=== PATIENT | male | born 1990 | race Caucasian/White ===

== ENCOUNTER 2024-04-08 09:07 | Emergency (ER) | payer OTHER, SELFPAY ==
[2024-04-08 09:16] VITALS: BP 160/88; PULSE 73; RESP 18; TEMP 37.2; O2SAT 99; BMI 23.1
--- NOTE | 2024-04-08 09:42 | ED_ITS ---
HPI - General Adult General Date Seen: 04/08/24 <Cheng Pozo DO - Last Filed: 04/10/24 16:07> Chief complaint: Altered Mental Status <Cheng Pozo DO - Last Filed: 04/10/24 16:07> Stated complaint: schizophrenia <Cheng Pozo DO - Last Filed: 04/10/24 16:07> Time Seen by Provider: 04/08/24 09:31 <Cheng Pozo DO - Last Filed: 04/10/24 16:07> Source: patient and other ( girlfriend) <Cheng Pozo DO - Last Filed: 04/10/24 16:07> Mode of arrival: ambulatory <Cheng Pozo DO - Last Filed: 04/10/24 16:07> Limitations: no limitations <Cheng Pozo DO - Last Filed: 04/10/24 16:07> History of Present Illness HPI narrative: patient is a 33-year-old male history of schizophrenia presenting to the emergency department for concern of a schizophrenic episode. His girlfriend is with him and she is the 1 that brought him in. She states that he was doing well for a long time but over the past few weeks she has noticed he has been having worsening delusions and has been wandering around town. She is concerned that he could get himself hurt. He also started doing meth again over the past week. He was sober for it for several months. He states he stopped taking his medications 2 months ago because he want to see if he could function without them. When asked him where he is he stated [place] but knew he was in the hospital. When of her ask him questions he mostly looks to his girlfriend to help him answer. He does state he thinks he needs treatment at this time. Denies chest pain, shortness of breath, weakness, numbness, abdominal pain, diarrhea, constipation. They just moved from [place] a few weeks ago and do not have any local providers. <Cheng Pozo DO - Last Filed: 04/10/24 16:07> Related Data Home medications: Home Medications Medication Instructions Recorded Confirmed Unobtainable 04/08/24 04/08/24 <Cheng Pozo DO - Last Filed: 04/10/24 16:07> Allergies/adverse reactions: Allergies Allergy/AdvReac Type Severity Reaction Status Date / Time No Known Drug Allergies Allergy Verified 04/08/24 09:20 <Cheng Pozo DO - Last Filed: 04/10/24 16:07> Review of Systems Status of ROS: Reports: 10 or more systems reviewed and unremarkable except as noted in History and below <Cheng Pozo DO - Last Filed: 04/10/24 16:07> [facility] Social History: Social History Smoking Status: Current every day smoker Second hand tobacco smoke exposure: No How often do you have a drink containing alcohol: never How often do you have six or more drinks on one occasion: Never AUDIT-C Alcohol total score: 0 Non-prescribed substance use: denies use service: No <Cheng Pozo DO - Last Filed: 04/10/24 16:07> Exam Narrative: Exam Narrative: Const: Well-nourished, Well-developed, in mild distress Eyes: PERRL, no conjunctival injection, and symmetrical lids HENT: Atraumatic external nose and ears. Moist mucous membranes. Neck: Symmetric, trachea midline, No thyromegaly. CVS: RRR, No murmurs or gallops. Peripheral pulses 2+ and equal in all extremities RESP: Unlabored respiratory effort. Clear to auscultation bilaterally. GI: Nontender/Nondistended, No rebound or guarding. MSK:Extremities w/o deformity, Normal Active ROM Skin: Warm, Dry. No rashes or lesions. Neuro: Normal Muscle tone, No focal neurological deficits. Psych: Awake, Alert, & Oriented to self. for the most part seems oriented to place and situation with occasional lapses. Appropriate mood and affect. <Cheng Pozo DO - Last Filed: 04/10/24 16:07> Const: Vital Signs, click to edit/add: Vital Signs - 24 hr 04/08/24 09:16 04/08/24 15:18 Temperature 99.0 F Pulse Rate [Left P ulse Oximeter] 73 80 Respiratory Rate 18 16 Blood Pressure [Le ft Upper Arm] 160/88 H 116/56 L Pulse Oximetry 99 99 Oxygen Delivery Me thod Room Air <Cheng Pozo DO - Last Filed: 04/10/24 16:07> Vital Signs, click to edit/add: Vital Signs - 24 hr 04/08/24 09:16 04/08/24 15:18 Temperature 99.0 F Pulse Rate [Left P ulse Oximeter] 73 80 Respiratory Rate 18 16 Blood Pressure [Le ft Upper Arm] 160/88 H 116/56 L Pulse Oximetry 99 99 Oxygen Delivery Me thod Room Air <Pardeep Saldana MD - Last Filed: 04/08/24 19:05> Course Vital Signs Vital signs: Initial Vital Signs Temperature 99.0 F 04/08/24 09:16 Temperature Source Temporal Artery Scan 04/08/24 09:16 Pulse Rate 73 04/08/24 09:16 Pulse Rhythm Regular 04/08/24 09:16 Pulse Strength 3+ Normal 04/08/24 09:16 Respiratory Rate 18 04/08/24 09:16 Blood Pressure 160/88 H 04/08/24 09:16 Blood Pressure Mean 112 H 04/08/24 09:16 Blood Pressure Position Sitting 04/08/24 09:16 Pulse Oximetry 99 04/08/24 09:16 Oxygen Delivery Method Room Air 04/08/24 09:16 Vital Signs Temperature 99.0 F 04/08/24 09:16 Pulse Rate 73 04/08/24 09:16 Respiratory Rate 18 04/08/24 09:16 Blood Pressure 160/88 H 04/08/24 09:16 Pulse Oximetry 99 04/08/24 09:16 Oxygen Delivery Method Room Air 04/08/24 09:16 Temperature 99.0 F 04/08/24 09:16 Pulse Rate 80 04/08/24 15:18 Respiratory Rate 16 04/08/24 15:18 Blood Pressure 116/56 L 04/08/24 15:18 Pulse Oximetry 99 04/08/24 15:18 Oxygen Delivery Method Room Air 04/08/24 09:16 <Cheng Pozo DO - Last Filed: 04/10/24 16:07> Initial Vital Signs Temperature 99.0 F 04/08/24 09:16 Temperature Source Temporal Artery Scan 04/08/24 09:16 Pulse Rate 73 04/08/24 09:16 Pulse Rhythm Regular 04/08/24 09:16 Pulse Strength 3+ Normal 04/08/24 09:16 Respiratory Rate 18 04/08/24 09:16 Blood Pressure 160/88 H 04/08/24 09:16 Blood Pressure Mean 112 H 04/08/24 09:16 Blood Pressure Position Sitting 04/08/24 09:16 Pulse Oximetry 99 04/08/24 09:16 Oxygen Delivery Method Room Air 04/08/24 09:16 Vital Signs Temperature 99.0 F 04/08/24 09:16 Pulse Rate 73 04/08/24 09:16 Respiratory Rate 18 04/08/24 09:16 Blood Pressure 160/88 H 04/08/24 09:16 Pulse Oximetry 99 04/08/24 09:16 Oxygen Delivery Method Room Air 04/08/24 09:16 Temperature 99.0 F 04/08/24 09:16 Pulse Rate 80 04/08/24 15:18 Respiratory Rate 16 04/08/24 15:18 Blood Pressure 116/56 L 04/08/24 15:18 Pulse Oximetry 99 04/08/24 15:18 Oxygen Delivery Method Room Air 04/08/24 09:16 <Pardeep Saldana MD - Last Filed: 04/08/24 19:05> Medications Administered Medications: Discontinued Medications Generic Name Dose Route Start Last Admin Trade Name Freq PRN Reason Stop Dose Admin Olanzapine 10 mg 04/08/24 11:26 04/08/24 11:52 Olanzapine 5 Mg Tab.Rapdis PO 04/08/24 11:27 10 mg ONCE ONE Administration <Cheng Pozo DO - Last Filed: 04/10/24 16:07> Discontinued Medications Generic Name Dose Route Start Last Admin Trade Name Freq PRN Reason Stop Dose Admin Olanzapine 10 mg 04/08/24 11:26 04/08/24 11:52 Olanzapine 5 Mg Tab.Rapdis PO 04/08/24 11:27 10 mg ONCE ONE Administration <Pardeep Saldana MD - Last Filed: 04/08/24 19:05> Medical Decision Making [facility] Narrative Medical decision making narrative: Patient is a 31-year-old male presenting to the emergency department for psychiatric evaluation. Will have him evaluated by DEC. Will do mental health lab work for anticipated admission. CBC and BMP showed no concerning findings. Urinalysis shows no concerning findings. Urine drug screen is positive for methamphetamines which he has admitted to using and marijuana. COVID is negative. JUNE did recommend giving him a dose of Zyprexa as is likely meth induced and will look for inpatient treatment for him. He is agreeable to this plan. He is voluntary currently. We are looking for placement at this time. Patient was signed out to my colleague pending final placement <Cheng Pozo DO - Last Filed: 04/10/24 16:07> Patient is a 31-year-old male presenting to the emergency department for psychiatric evaluation. Will have him evaluated by JUNE. Will do mental health lab work for anticipated admission. CBC and BMP showed no concerning findings. Urinalysis shows no concerning findings. Urine drug screen is positive for methamphetamines which he has admitted to using and marijuana. COVID is negative. JUNE did recommend giving him a dose of Zyprexa as is likely meth induced and will look for inpatient treatment for him. He is agreeable to this plan. He is voluntary currently. We are looking for placement at this time. Patient was signed out to my colleague pending final placement This patient is accepted at [facility] in [facility]. He is placed on a hold for transportation there. He is able to go by ambulance. Insert my knee <Pardeep Saldana MD - Last Filed: 04/08/24 19:05> Lab Data Labs: Lab Results 04/08/24 04/08/24 04/08/24 Range/Units 11:39 11:47 15:00 WBC 8.34 (4.50-11.00) K/uL RBC 5.50 (4.30-5.90) m/uL Hgb 17.0 (13.5-17.5) gm/dL Hct 46.7 (37.0-53.0) % MCV 85 (80-100) fL MCH 31 (26-34) pg MCHC 36 (32-36) gm/dL RDW Coeff of [place] 12.9 (11.5-15.5) % Plt Count 302 (140-440) K/uL Neut % (Auto) 69.7 (42.0-72.0) % Lymph % (Auto) 20.0 (20-44) % [place] % (Auto) 6.0 (0.0-11.0) % Eos % (Auto) 2.9 (0.0-7.0) % Baso % (Auto) 1.3 (0.0-3.0) % Neut # (Auto) 5.81 (1.7-7.0) K/uL Lymph # (Auto) 1.67 (0.90-2.90) K/uL [place] # (Auto) 0.50 (0.00-0.90) K/UL Eos # (Auto) 0.24 (0.00-0.50) K/uL Baso # (Auto) 0.11 (0.00-0.30) K/uL Abs Immat Gran (auto) 0.01 (0.00-0.30) K/uL Imm/Tot Granulo (auto) 0.1 % Sodium 140 (135-149) mmol/L Potassium 3.5 L (3.6-5.1) mmol/L Chloride 99 (96-114) mmol/L Carbon Dioxide 28 (20-32) mmol/L Anion Gap 13 (7-15) mEq/L BUN 14 (5-24) mg/dL Creatinine 0.8 (0.5-1.5) mg/dL Estimated Creat Clear 144.58 Estimated GFR 121 ml/min Glucose 100 (60-115) mg/dL Calcium 9.2 (8.4-10.6) mg/dL Urine Color Costa A (Yellow) Urine Appearance Clear (Clear) Urine pH 6.0 (5.0-8.5) Ur Specific [place] >= 1.030 (1.000-1.030) Urine Protein 1+ A (Negative) Urine Glucose (UA) Negative (Negative) Urine Ketones 3+ A (Negative) Urine Blood Negative (Negative) Urine Nitrite Negative (Negative) Urine Bilirubin 2+ A (Negative) Urine Urobilinogen 0.2 (0.2-1.0) Ur Leukocyte Esterase Negative (Negative) Urine RBC 0-2 (0-2) Urine WBC 0-2 (0-5) Ur Squamous Epith Cells None (None-Few) Urine Bacteria Few A (None) Urine Opiates Screen Negative (Negative) Ur Oxycodone Screen Negative (Negative) Urine Methadone Screen Negative (Negative) Ur Barbiturates Screen Negative (Negative) U Tricyclic Antidepress Negative (Negative) Ur Phencyclidine Scrn Negative (Negative) Ur Amphetamines Screen POSITIVE A (Negative) U Methamphetamines Scrn POSITIVE A (Negative) U Benzodiazepines Scrn Negative (Negative) Urine Cocaine Screen Negative (Negative) U Marijuana (THC) Screen POSITIVE A (Negative) Ur Drug Screen Comment See Note SARS-CoV-2 (PCR) Negative SARS-CoV-2 (Negative) Influenza Type A (PCR) Negative PCR FLU A (Negative) Influenza Type B (PCR) Negative PCR FLU B (Negative) <Cheng Pozo, DO - Last Filed: 04/10/24 16:07> Lab Results 04/08/24 04/08/24 04/08/24 Range/Units 11:39 11:47 15:00 WBC 8.34 (4.50-11.00) K/uL RBC 5.50 (4.30-5.90) m/uL Hgb 17.0 (13.5-17.5) gm/dL Hct 46.7 (37.0-53.0) % MCV 85 (80-100) fL MCH 31 (26-34) pg MCHC 36 (32-36) gm/dL RDW Coeff of [place] 12.9 (11.5-15.5) % Plt Count 302 (140-440) K/uL Neut % (Auto) 69.7 (42.0-72.0) % Lymph % (Auto) 20.0 (20-44) % [place] % (Auto) 6.0 (0.0-11.0) % Eos % (Auto) 2.9 (0.0-7.0) % Baso % (Auto) 1.3 (0.0-3.0) % Neut # (Auto) 5.81 (1.7-7.0) K/uL Lymph # (Auto) 1.67 (0.90-2.90) K/uL [place] # (Auto) 0.50 (0.00-0.90) K/UL Eos # (Auto) 0.24 (0.00-0.50) K/uL Baso # (Auto) 0.11 (0.00-0.30) K/uL Abs Immat Gran (auto) 0.01 (0.00-0.30) K/uL Imm/Tot Granulo (auto) 0.1 % Sodium 140 (135-149) mmol/L Potassium 3.5 L (3.6-5.1) mmol/L Chloride 99 (96-114) mmol/L Carbon Dioxide 28 (20-32) mmol/L Anion Gap 13 (7-15) mEq/L BUN 14 (5-24) mg/dL Creatinine 0.8 (0.5-1.5) mg/dL Estimated Creat Clear 144.58 Estimated GFR 121 ml/min Glucose 100 (60-115) mg/dL Calcium 9.2 (8.4-10.6) mg/dL Urine Color [place] A (Yellow) Urine Appearance Clear (Clear) Urine pH 6.0 (5.0-8.5) Ur Specific [place] >= 1.030 (1.000-1.030) Urine Protein 1+ A (Negative) Urine Glucose (UA) Negative (Negative) Urine Ketones 3+ A (Negative) Urine Blood Negative (Negative) Urine Nitrite Negative (Negative) Urine Bilirubin 2+ A (Negative) Urine Urobilinogen 0.2 (0.2-1.0) Ur Leukocyte Esterase Negative (Negative) Urine RBC 0-2 (0-2) Urine WBC 0-2 (0-5) Ur Squamous Epith Cells None (None-Few) Urine Bacteria Few A (None) Urine Opiates Screen Negative (Negative) Ur Oxycodone Screen Negative (Negative) Urine Methadone Screen Negative (Negative) Ur Barbiturates Screen Negative (Negative) U Tricyclic Antidepress Negative (Negative) Ur Phencyclidine Scrn Negative (Negative) Ur Amphetamines Screen POSITIVE A (Negative) U Methamphetamines Scrn POSITIVE A (Negative) U Benzodiazepines Scrn Negative (Negative) Urine Cocaine Screen Negative (Negative) U Marijuana (THC) Screen POSITIVE A (Negative) Ur Drug Screen Comment See Note SARS-CoV-2 (PCR) Negative SARS-CoV-2 (Negative) Influenza Type A (PCR) Negative PCR FLU A (Negative) Influenza Type B (PCR) Negative PCR FLU B (Negative) <Pardeep Saldana MD - Last Filed: 04/08/24 19:05> Discharge Plan Discharge Clinical Impression: Schizophrenia <Cheng Pozo DO - Last Filed: 04/10/24 16:07> Patient Disposition: Xfer Psychiatric Hosp <Cheng Pozo DO - Last Filed: 04/10/24 16:07> Condition: Stable <Cheng Pozo DO - Last Filed: 04/10/24 16:07> Prescriptions: No Action Unobtainable <Cheng Pozo, - Last Filed: 04/10/24 16:07> Stand Alone Forms: MyHealth Info Instructions <Cheng Pozo DO - Last Filed: 04/10/24 16:07>
[2024-04-08] MEDS: OLANZapine 5 MG TAB.RAPDIS 10 MG PO (11:52)
[2024-04-08 11:58] LABS: Amphetamine Screen Urine POSITIVE (Negative); Barbiturate Screen Urine Negative (Negative); Benzodiazepines Screen Urine Negative (Negative); Cannabinoid Screen Urine POSITIVE (Negative); Cocaine Screen Urine Negative (Negative); Methadone Screen Urine Negative (Negative); Methamphetamines Screen Urine POSITIVE (Negative); Opiate Screen Urine Negative (Negative); Oxycodone Screen Urine Negative (Negative); Phencyclidine Screen Urine Negative (Negative); Tricyclic Antidepressant Urine Negative (Negative)
[2024-04-08 11:59] LABS: Basophils Absolute Auto 0.11 K/uL (0.00-0.30); Basophils Percent Auto 1.3 % (0.0-3.0); Eosinophils Absolute Auto 0.24 K/uL (0.00-0.50); Eosinophils Percent Auto 2.9 % (0.0-7.0); Hematocrit 46.7 % (37.0-53.0); Immature Granulocytes Abs Auto 0.01 K/uL (0.00-0.30); Immature Granulocytes Pct Auto 0.1 %; Lymphocytes Absolute Auto 1.67 K/uL (0.90-2.90); Mean Corpuscular HGB Conc 36 gm/dL (32-36); Mean Corpuscular Hemoglobin 31 pg (26-34); Mean Corpuscular Volume 85 fL (80-100); Neutrophils Absolute Auto 5.81 K/uL (1.7-7.0); Neutrophils Percent Auto 69.7 % (42.0-72.0); Platelet Count* 302 K/uL (140-440); RDW Coefficient of Variation % 12.9 % (11.5-15.5); White Blood Count* 8.34 K/uL (4.50-11.00)
[2024-04-08 12:01] LABS: Slide Review Reflex No
[2024-04-08 12:10] LABS: Appearance Urine Clear (Clear); Bilirubin Urine 2+ (Negative); Blood Urine Negative (Negative); Color Urine Orange (Yellow); Glucose Urine Negative (Negative); Ketones Urine 3+ (Negative); Leukocyte Esterase Urine Negative (Negative); Nitrite Urine Negative (Negative); Protein Urine 1+ (Negative); Specific Gravity Urine >= 1.030 (1.000-1.030); Urobilinogen Urine 0.2 (0.2-1.0)
[2024-04-08 12:19] LABS: Bacteria Urine Few; RBC Urine 0-2 (0-2); WBC Urine 0-2 (0-5)
[2024-04-08 12:30] LABS: Chloride* 99 mmol/L (96-114); Potassium* 3.5 mmol/L (3.6-5.1); Sodium* 140 mmol/L (135-149)
[2024-04-08 12:33] LABS: Anion Gap 13 mEq/L (7-15); Blood Urea Nitrogen* 14 mg/dL (5-24); Calcium* 9.2 mg/dL (8.4-10.6); Carbon Dioxide* 28 mmol/L (20-32); Creatinine* 0.8 mg/dL (0.5-1.5); Est. Creatinine Clearance* 144.58; Estimated Glomerular Filt Rate 121 ml/min; Glucose* 100 mg/dL (60-115)
[2024-04-08 15:18] VITALS: BP 116/56; PULSE 80; RESP 16; O2SAT 99
[2024-04-08 15:56] LABS: PCR FLU A Negative PCR FLU A (Negative); PCR FLU B Negative PCR FLU B (Negative); SARS PCR* Negative SARS-CoV-2 (Negative)
== END 2024-04-08 19:18 ==
PROVIDERS: Student in an Organized Health Care Education/Training Program; Emergency Provider Emergency Medicine Emergency Medical Services
DX: F20.9 Schizophrenia, unspecified (principal)
CPT/HCPCS: 36415; 80048; 80306; 81001; 85025; 87086; 87631; 99283; 99284; A9270

== ENCOUNTER 2024-04-08 19:00 | Outpatient (CLI) | payer OTHER, SELFPAY | END 2024-04-08 19:01 | disposition home or self-care (01) | LOC: AMB 04-15 03:28 | PROVIDERS: Visit Provider Emergency Medicine Emergency Medical Services | DX: F20.9 Schizophrenia, unspecified (principal) | CPT/HCPCS: A0425; A0428 ==

== ENCOUNTER 2024-04-08 19:00 | Outpatient (CLI) | payer OTHER, SELFPAY | END 2024-04-08 19:01 | disposition home or self-care (01) | LOC: AMB 04-14 09:34 | PROVIDERS: Visit Provider Emergency Medicine Emergency Medical Services | DX: F20.9 Schizophrenia, unspecified (principal) ==